=== PATIENT | male | born 1935 | race Hispanic/Latino ===

== ENCOUNTER 2021-05-17 14:45 | Inpatient (IN) | payer MEDICARE, BC ==
[2021-05-17 16:13] LABS: #Monocytes 0.5 10x3/uL (0.0-1.1); #Neutrophils 3.3 10x3/uL (1.5-8.4); %Basophils 0.2 % (0.0-2.0); %Lymphocytes 26.7 % (18.0-47.0); %Monocytes 9.5 % (0.0-10.0); %Neutrophils 63.2 % (40.0-75.0); Hemoglobin 11.3 g/dL (13.5-17.5); Mean Corpuscular Hemoglobin 24.1 pg (27.0-33.0); Mean Corpuscular Volume 77.6 fl (81.2-95.1); Mean Platelet Volume 10.7 fl (7.4-10.4); Platelet Count 132 10x3/uL (150-450); RBC Distribution Width 17.6 % (11.5-14.5); Red Blood Cell (RBC) Count 4.69 10x6/uL (4.32-5.72); White Blood Cell (WBC) Count 5.2 10x3/uL (3.5-10.5)
[2021-05-17] MEDS ORDERED: Calcium Carbonate 500 MG ChewTAB PO PRN (19:31)
[2021-05-17] MEDS ORDERED: Acetaminophen 325 MG TAB PO PRN (19:31)
[2021-05-17] MEDS ORDERED: Guaifenesin DM 100-10/5 ML UDCUP PO PRN (19:31)
[2021-05-17] MEDS ORDERED: Ondansetron PF 4 MG/2 ML Vial IVP PRN (19:31)
[2021-05-17 19:32] LABS: ALT (SGPT) 36 U/L (8-55); AST (SGOT) 79 U/L (5-34); Albumin 3.8 g/dL (3.4-4.8); Alkaline Phosphatase 57 U/L (40-110); Anion Gap 18 mmol/L (10-20); BUN (Urea Nitrogen) 26 mg/dL (8.4-25.7); Bilirubin, Total 0.5 mg/dL (0.2-1.2); CK (CPK) 1453 U/L (30-200); CRP (Inflammatory) 7.97 mg/dL (= or < 0.5); Calc. Creatinine Clearance 0 mL/min (70-130); Calcium 8.6 mg/dL (7.8-10.44); Carbon Dioxide 17 mmol/L (23-31); Chloride 99 mmol/L (98-107); Globulin 3.3 g/dL (2.4-3.5); Glucose 98 mg/dL (83-110); Potassium 4.1 mmol/L (3.5-5.1); Protein, Total 7.1 g/dL (5.8-8.1); Sodium 130 mmol/L (136-145)
[2021-05-17] MEDS ORDERED: Dextrose 50% Abboject 50 ML SYRINGE SLOW IVP PRN (19:36)
[2021-05-17] MEDS ORDERED: Dextrose 5% in Water 1,000 ML IV PRN (19:36)
[2021-05-17] MEDS ORDERED: Tamsulosin HCl 0.4 MG CAP PO SCH (21:00)
[2021-05-18 04:16] LABS: ALT (SGPT) 33 U/L (8-55); AST (SGOT) 65 U/L (5-34); Albumin 3.4 g/dL (3.4-4.8); Alkaline Phosphatase 55 U/L (40-110); Anion Gap 16 mmol/L (10-20); BUN (Urea Nitrogen) 20 mg/dL (8.4-25.7); Bilirubin, Total 0.5 mg/dL (0.2-1.2); CK (CPK) 1026 U/L (30-200); Calc. Creatinine Clearance 0 mL/min (70-130); Calcium 8.5 mg/dL (7.8-10.44); Carbon Dioxide 15 mmol/L (23-31); Chloride 105 mmol/L (98-107); Globulin 3.5 g/dL (2.4-3.5); Glucose 100 mg/dL (83-110); Iron 11 ug/dL (65-175); Iron Binding Capacity, Total 306 mcg/dL (261-462); Magnesium 1.7 mg/dL (1.6-2.6); Potassium 4.1 mmol/L (3.5-5.1); Protein, Total 6.9 g/dL (5.8-8.1); Sodium 132 mmol/L (136-145)
[2021-05-18 04:22] LABS: #Monocytes 0.4 10x3/uL (0.0-1.1); #Neutrophils 3.4 10x3/uL (1.5-8.4); %Basophils 0.2 % (0.0-2.0); %Eosinophils 0.2 % (0.0-6.0); %Lymphocytes 19.3 % (18.0-47.0); %Monocytes 8.5 % (0.0-10.0); %Neutrophils 71.6 % (40.0-75.0); Hemoglobin 10.9 g/dL (13.5-17.5); Mean Corpuscular HGB CONC 31.3 g/dL (32.0-36.0); Mean Corpuscular Hemoglobin 23.7 pg (27.0-33.0); Mean Corpuscular Volume 75.8 fl (81.2-95.1); Mean Platelet Volume 10.7 fl (7.4-10.4); Platelet Count 126 10x3/uL (150-450); RBC Distribution Width 17.5 % (11.5-14.5); Red Blood Cell (RBC) Count 4.59 10x6/uL (4.32-5.72); White Blood Cell (WBC) Count 4.7 10x3/uL (3.5-10.5)
[2021-05-18] MEDS ORDERED: Sodium Chloride 0.9% 500 ML IV SCH (04:30)
[2021-05-18 06:52] LABS: Bilirubin Neg (Negative); Blood, Urine 150 (Negative); Clarity Clear (Clear); Glucose, Urine (Dipstick) Normal (Negative); Ketone, Urine 50 mg/dL (Negative); Leukocyte Negative (Negative); Nitrite Negative (Negative); Protein, Urine (Dipstick) 30 mg/dl (Neg-Trace); Specific Gravity, Urine 1.025 (1.002-1.036); Urobilinogen Normal mg/dL (Less than 2)
[2021-05-18 06:59] LABS: Bacteria/HPF Rare-Few HPF (None Seen); RBC/HPF 0-3 HPF (0-3); Squamous Epithelial 0-3 HPF (0-3); WBC/HPF 0-3 HPF (0-3)
[2021-05-18 08:36] LABS: CKMB 6.3 ng/mL (0-6.6)
[2021-05-18] MEDS: Cholecalciferol 1,000 UNITS (25 MCG) TAB PO SCH (09:00)
[2021-05-18] MEDS: Zinc Gluconate 50 MG TAB PO SCH (09:00)
[2021-05-18] MEDS: Multivitamin W/ Minerals 1 TAB PO SCH (09:00)
[2021-05-18] MEDS: Carvedilol 25 MG TAB PO SCH ×2 (09:00→22:10)
[2021-05-18] MEDS ORDERED: DorzolamidE/Timolol 2%/0.5% Ophth Soln 10 ml Bottle EA EYE SCH (09:00)
[2021-05-18] MEDS: Ascorbic Acid 500 mg Chewable Tablet PO SCH (09:00)
[2021-05-18] MEDS: Aspirin 81 mg Enteric Coated Tablet PO SCH (12:00)
[2021-05-18] MEDS: Enoxaparin Sodium 40 MG/0.4 ML SYRINGE SC SCH (12:00)
[2021-05-18] MEDS: Allopurinol 300 MG TAB PO SCH (12:09)
[2021-05-18] MEDS: Timolol 0.5% Ophth Soln 5 ml Bottle EA EYE SCH ×2 (12:13→22:05)
[2021-05-18] MEDS ORDERED: Enoxaparin Sodium 40 MG/0.4 ML SYRINGE ONE (12:35)
[2021-05-18] MEDS ORDERED: Aspirin Chewable 81 MG TAB ONE (12:35)
[2021-05-18] MEDS: Dorzolamide HCl 2% Ophth Soln 10 ml Bottle EA EYE SCH ×2 (15:15→22:05)
[2021-05-18] MEDS: Sodium Chloride 0.9% 1,000 ML IV SCH ×2 (15:34→15:35)
[2021-05-18] MEDS: HumaLOG 300 UNITS/3 ML VIAL SC PRN (16:04)
[2021-05-18] MEDS: Dextrose 5%-Lactated Ringers 1,000 ML IV SCH (22:10)
[2021-05-18] MEDS: Latanoprost 0.005% Ophth Soln 2.5 ml Bottle EA EYE SCH (22:10)
[2021-05-19] MEDS: HumaLOG 300 UNITS/3 ML VIAL SC PRN ×2 (05:44→13:37)
[2021-05-19] MEDS: Zinc Gluconate 50 MG TAB PO SCH (10:20)
[2021-05-19] MEDS: Ascorbic Acid 500 mg Chewable Tablet PO SCH (10:20)
[2021-05-19] MEDS: Enoxaparin Sodium 40 MG/0.4 ML SYRINGE SC SCH (10:20)
[2021-05-19] MEDS: Aspirin 81 mg Enteric Coated Tablet PO SCH ×2 (10:20→17:35)
[2021-05-19] MEDS: Multivitamin W/ Minerals 1 TAB PO SCH (10:20)
[2021-05-19] MEDS: Carvedilol 25 MG TAB PO SCH ×2 (10:21→21:00)
[2021-05-19] MEDS: Cholecalciferol 1,000 UNITS (25 MCG) TAB PO SCH (10:23)
[2021-05-19] MEDS: Allopurinol 300 MG TAB PO SCH (10:24)
[2021-05-19] MEDS: Dorzolamide HCl 2% Ophth Soln 10 ml Bottle EA EYE SCH ×2 (10:25→21:01)
[2021-05-19] MEDS: Timolol 0.5% Ophth Soln 5 ml Bottle EA EYE SCH ×2 (10:26→21:01)
[2021-05-19] MEDS: Dextrose 5%-Lactated Ringers 1,000 ML IV SCH (10:29)
[2021-05-19 18:30] LABS: ALT (SGPT) 32 U/L (8-55); AST (SGOT) 49 U/L (5-34); Alkaline Phosphatase 47 U/L (40-110); Anion Gap 12 mmol/L (10-20); BUN (Urea Nitrogen) 12 mg/dL (8.4-25.7); Bilirubin, Total 0.3 mg/dL (0.2-1.2); CK (CPK) 403 U/L (30-200); Calc. Creatinine Clearance 93 mL/min (70-130); Calcium 8.4 mg/dL (7.8-10.44); Carbon Dioxide 19 mmol/L (23-31); Chloride 108 mmol/L (98-107); Glucose 132 mg/dL (83-110); Potassium 3.7 mmol/L (3.5-5.1); Sodium 135 mmol/L (136-145)
[2021-05-19 18:31] LABS: #Eosinphils 0.1 10x3/uL (0.0-0.5); #Monocytes 0.4 10x3/uL (0.0-1.1); #Neutrophils 2.7 10x3/uL (1.5-8.4); %Basophils 0.2 % (0.0-2.0); %Eosinophils 2.3 % (0.0-6.0); %Lymphocytes 26.3 % (18.0-47.0); %Monocytes 8.4 % (0.0-10.0); %Neutrophils 62.6 % (40.0-75.0); Hemoglobin 10.1 g/dL (13.5-17.5); Mean Corpuscular HGB CONC 32.1 g/dL (32.0-36.0); Mean Corpuscular Hemoglobin 24.1 pg (27.0-33.0); Mean Corpuscular Volume 75.2 fl (81.2-95.1); Mean Platelet Volume 10.5 fl (7.4-10.4); Platelet Count 131 10x3/uL (150-450); RBC Distribution Width 17.6 % (11.5-14.5); Red Blood Cell (RBC) Count 4.19 10x6/uL (4.32-5.72); White Blood Cell (WBC) Count 4.3 10x3/uL (3.5-10.5)
[2021-05-19] MEDS: Latanoprost 0.005% Ophth Soln 2.5 ml Bottle EA EYE SCH (21:00)
[2021-05-20 05:42] LABS: ALT (SGPT) 32 U/L (8-55); AST (SGOT) 48 U/L (5-34); Alkaline Phosphatase 47 U/L (40-110); Anion Gap 13 mmol/L (10-20); BUN (Urea Nitrogen) 10 mg/dL (8.4-25.7); Bilirubin, Total 0.5 mg/dL (0.2-1.2); CK (CPK) 378 U/L (30-200); CRP (Inflammatory) 6.22 mg/dL (= or < 0.5); Calc. Creatinine Clearance 93 mL/min (70-130); Calcium 8.5 mg/dL (7.8-10.44); Carbon Dioxide 19 mmol/L (23-31); Chloride 106 mmol/L (98-107); Globulin 3.1 g/dL (2.4-3.5); Glucose 130 mg/dL (83-110); Potassium 3.7 mmol/L (3.5-5.1); Protein, Total 6.1 g/dL (5.8-8.1); Sodium 134 mmol/L (136-145)
[2021-05-20 05:47] LABS: #Eosinphils 0.1 10x3/uL (0.0-0.5); #Monocytes 0.4 10x3/uL (0.0-1.1); #Neutrophils 2.5 10x3/uL (1.5-8.4); %Basophils 0.2 % (0.0-2.0); %Eosinophils 2.2 % (0.0-6.0); %Lymphocytes 31.3 % (18.0-47.0); %Monocytes 9.6 % (0.0-10.0); %Neutrophils 56.5 % (40.0-75.0); Hemoglobin 10.1 g/dL (13.5-17.5); Mean Corpuscular Volume 75.1 fl (81.2-95.1); Mean Platelet Volume 11.7 fl (7.4-10.4); Platelet Count 126 10x3/uL (150-450); RBC Distribution Width 17.5 % (11.5-14.5); Red Blood Cell (RBC) Count 4.21 10x6/uL (4.32-5.72); White Blood Cell (WBC) Count 4.5 10x3/uL (3.5-10.5)
[2021-05-20] MEDS: Ascorbic Acid 500 mg Chewable Tablet PO SCH (10:29)
[2021-05-20] MEDS: Enoxaparin Sodium 40 MG/0.4 ML SYRINGE SC SCH (10:29)
[2021-05-20] MEDS: Allopurinol 300 MG TAB PO SCH (10:30)
[2021-05-20] MEDS: Fluticasone Propionate Nasal Spray 16 gm Bottle NASAL SCH (10:30)
[2021-05-20] MEDS: Carvedilol 25 MG TAB PO SCH ×2 (10:30→20:06)
[2021-05-20] MEDS: Cholecalciferol 1,000 UNITS (25 MCG) TAB PO SCH (10:30)
[2021-05-20] MEDS: Timolol 0.5% Ophth Soln 5 ml Bottle EA EYE SCH ×2 (10:31→20:25)
[2021-05-20] MEDS: Loratadine 10 MG TAB PO SCH (10:31)
[2021-05-20] MEDS: Dorzolamide HCl 2% Ophth Soln 10 ml Bottle EA EYE SCH ×2 (10:31→20:12)
[2021-05-20] MEDS ORDERED: METHAZOLAMIDE 50 MG PO SCH (13:00)
[2021-05-20] MEDS: Latanoprost 0.005% Ophth Soln 2.5 ml Bottle EA EYE SCH (20:07)
[2021-05-20] MEDS: METHAZOLAMIDE 50 MG PO SCH (20:10)
[2021-05-21 06:06] LABS: #Eosinphils 0.1 10x3/uL (0.0-0.5); #Monocytes 0.4 10x3/uL (0.0-1.1); #Neutrophils 2.5 10x3/uL (1.5-8.4); %Basophils 0.2 % (0.0-2.0); %Eosinophils 2.4 % (0.0-6.0); %Lymphocytes 27.9 % (18.0-47.0); %Monocytes 9.9 % (0.0-10.0); %Neutrophils 59.4 % (40.0-75.0); Hemoglobin 10.7 g/dL (13.5-17.5); Mean Corpuscular HGB CONC 31.7 g/dL (32.0-36.0); Mean Corpuscular Hemoglobin 24.1 pg (27.0-33.0); Mean Corpuscular Volume 76.1 fl (81.2-95.1); Mean Platelet Volume 9.9 fl (7.4-10.4); Platelet Count 148 10x3/uL (150-450); RBC Distribution Width 17.8 % (11.5-14.5); Red Blood Cell (RBC) Count 4.44 10x6/uL (4.32-5.72); White Blood Cell (WBC) Count 4.2 10x3/uL (3.5-10.5)
[2021-05-21 06:16] LABS: ALT (SGPT) 36 U/L (8-55); AST (SGOT) 45 U/L (5-34); Albumin 3.3 g/dL (3.4-4.8); Alkaline Phosphatase 71 U/L (40-110); Anion Gap 14 mmol/L (10-20); BUN (Urea Nitrogen) 8 mg/dL (8.4-25.7); Bilirubin, Total 0.7 mg/dL (0.2-1.2); CRP (Inflammatory) 12.72 mg/dL (= or < 0.5); Calc. Creatinine Clearance 90 mL/min (70-130); Calcium 8.9 mg/dL (7.8-10.44); Carbon Dioxide 20 mmol/L (23-31); Chloride 105 mmol/L (98-107); Globulin 3.5 g/dL (2.4-3.5); Glucose 139 mg/dL (83-110); Potassium 3.3 mmol/L (3.5-5.1); Protein, Total 6.8 g/dL (5.8-8.1); Sodium 136 mmol/L (136-145)
[2021-05-21] MEDS: Ascorbic Acid 500 mg Chewable Tablet PO SCH (08:45)
[2021-05-21] MEDS: Cholecalciferol 1,000 UNITS (25 MCG) TAB PO SCH (08:45)
[2021-05-21] MEDS: Enoxaparin Sodium 40 MG/0.4 ML SYRINGE SC SCH (08:45)
[2021-05-21] MEDS: Loratadine 10 MG TAB PO SCH (08:46)
[2021-05-21] MEDS: Fluticasone Propionate Nasal Spray 16 gm Bottle NASAL SCH (08:46)
[2021-05-21] MEDS: Carvedilol 25 MG TAB PO SCH ×2 (08:46→19:40)
[2021-05-21] MEDS: Dorzolamide HCl 2% Ophth Soln 10 ml Bottle EA EYE SCH ×2 (08:46→19:50)
[2021-05-21] MEDS: METHAZOLAMIDE 50 MG PO SCH ×2 (08:46→19:40)
[2021-05-21] MEDS: Allopurinol 300 MG TAB PO SCH (08:46)
[2021-05-21] MEDS: Timolol 0.5% Ophth Soln 5 ml Bottle EA EYE SCH ×2 (08:46→20:00)
[2021-05-21] MEDS: HumaLOG 300 UNITS/3 ML VIAL SC PRN (13:15)
[2021-05-21] MEDS: Latanoprost 0.005% Ophth Soln 2.5 ml Bottle EA EYE SCH (21:30)
[2021-05-22] MEDS: HumaLOG 300 UNITS/3 ML VIAL SC PRN (00:40)
[2021-05-22 08:12] LABS: #Eosinphils 0.2 10x3/uL (0.0-0.5); #Monocytes 0.6 10x3/uL (0.0-1.1); #Neutrophils 3.3 10x3/uL (1.5-8.4); %Basophils 0.2 % (0.0-2.0); %Eosinophils 2.8 % (0.0-6.0); %Lymphocytes 22.7 % (18.0-47.0); %Monocytes 10.6 % (0.0-10.0); %Neutrophils 63.3 % (40.0-75.0); ALT (SGPT) 39 U/L (8-55); AST (SGOT) 48 U/L (5-34); Albumin 3.2 g/dL (3.4-4.8); Alkaline Phosphatase 88 U/L (40-110); Anion Gap 12 mmol/L (10-20); BUN (Urea Nitrogen) 12 mg/dL (8.4-25.7); Bilirubin, Total 0.6 mg/dL (0.2-1.2); CRP (Inflammatory) 11.28 mg/dL (= or < 0.5); Calc. Creatinine Clearance 90 mL/min (70-130); Carbon Dioxide 22 mmol/L (23-31); Chloride 106 mmol/L (98-107); Globulin 3.5 g/dL (2.4-3.5); Glucose 132 mg/dL (83-110); Hemoglobin 10.8 g/dL (13.5-17.5); Mean Corpuscular HGB CONC 31.9 g/dL (32.0-36.0); Mean Corpuscular Hemoglobin 24.4 pg (27.0-33.0); Mean Corpuscular Volume 76.7 fl (81.2-95.1); Mean Platelet Volume 11.1 fl (7.4-10.4); Platelet Count 204 10x3/uL (150-450); Potassium 3.7 mmol/L (3.5-5.1); Protein, Total 6.7 g/dL (5.8-8.1); Red Blood Cell (RBC) Count 4.42 10x6/uL (4.32-5.72); Sodium 136 mmol/L (136-145); White Blood Cell (WBC) Count 5.3 10x3/uL (3.5-10.5)
[2021-05-22] MEDS: Ascorbic Acid 500 mg Chewable Tablet PO SCH (09:35)
[2021-05-22] MEDS: Carvedilol 25 MG TAB PO SCH ×2 (09:35→21:27)
[2021-05-22] MEDS: Allopurinol 300 MG TAB PO SCH (09:35)
[2021-05-22] MEDS: Dorzolamide HCl 2% Ophth Soln 10 ml Bottle EA EYE SCH ×2 (09:36→21:28)
[2021-05-22] MEDS: Enoxaparin Sodium 40 MG/0.4 ML SYRINGE SC SCH (09:36)
[2021-05-22] MEDS: Fluticasone Propionate Nasal Spray 16 gm Bottle NASAL SCH (09:36)
[2021-05-22] MEDS: Cholecalciferol 1,000 UNITS (25 MCG) TAB PO SCH (09:36)
[2021-05-22] MEDS: Loratadine 10 MG TAB PO SCH (09:37)
[2021-05-22] MEDS: Timolol 0.5% Ophth Soln 5 ml Bottle EA EYE SCH ×2 (09:38→21:29)
[2021-05-22] MEDS: METHAZOLAMIDE 50 MG PO SCH ×2 (09:38→21:29)
[2021-05-22 09:55] VITALS: BMI 29.9
[2021-05-22] MEDS: Latanoprost 0.005% Ophth Soln 2.5 ml Bottle EA EYE SCH (21:29)
[2021-05-23 08:05] LABS: #Eosinphils 0.2 10x3/uL (0.0-0.5); #Monocytes 0.4 10x3/uL (0.0-1.1); #Neutrophils 2.6 10x3/uL (1.5-8.4); %Basophils 0.2 % (0.0-2.0); %Eosinophils 4.7 % (0.0-6.0); %Lymphocytes 23.4 % (18.0-47.0); %Monocytes 9.9 % (0.0-10.0); %Neutrophils 61.3 % (40.0-75.0); Hemoglobin 10.9 g/dL (13.5-17.5); Mean Corpuscular Hemoglobin 24.2 pg (27.0-33.0); Mean Platelet Volume 10.4 fl (7.4-10.4); Platelet Count 253 10x3/uL (150-450); RBC Distribution Width 18.3 % (11.5-14.5); Red Blood Cell (RBC) Count 4.51 10x6/uL (4.32-5.72); White Blood Cell (WBC) Count 4.2 10x3/uL (3.5-10.5)
[2021-05-23 08:29] LABS: ALT (SGPT) 34 U/L (8-55); AST (SGOT) 32 U/L (5-34); Albumin 3.3 g/dL (3.4-4.8); Alkaline Phosphatase 86 U/L (40-110); Anion Gap 14 mmol/L (10-20); BUN (Urea Nitrogen) 14 mg/dL (8.4-25.7); Bilirubin, Total 0.6 mg/dL (0.2-1.2); Calc. Creatinine Clearance 79 mL/min (70-130); Calcium 9.3 mg/dL (7.8-10.44); Carbon Dioxide 21 mmol/L (23-31); Chloride 105 mmol/L (98-107); Globulin 3.8 g/dL (2.4-3.5); Glucose 166 mg/dL (83-110); Potassium 3.6 mmol/L (3.5-5.1); Protein, Total 7.1 g/dL (5.8-8.1); Sodium 136 mmol/L (136-145)
[2021-05-23] MEDS: Dorzolamide HCl 2% Ophth Soln 10 ml Bottle EA EYE SCH ×2 (08:41→21:15)
[2021-05-23] MEDS: Cholecalciferol 1,000 UNITS (25 MCG) TAB PO SCH (08:41)
[2021-05-23] MEDS: Ascorbic Acid 500 mg Chewable Tablet PO SCH (08:41)
[2021-05-23] MEDS: Carvedilol 25 MG TAB PO SCH ×2 (08:41→21:13)
[2021-05-23] MEDS: Allopurinol 300 MG TAB PO SCH (08:41)
[2021-05-23] MEDS: Fluticasone Propionate Nasal Spray 16 gm Bottle NASAL SCH (08:42)
[2021-05-23] MEDS: Loratadine 10 MG TAB PO SCH (08:42)
[2021-05-23] MEDS: Enoxaparin Sodium 40 MG/0.4 ML SYRINGE SC SCH (08:42)
[2021-05-23] MEDS: METHAZOLAMIDE 50 MG PO SCH ×2 (08:43→21:13)
[2021-05-23] MEDS: Timolol 0.5% Ophth Soln 5 ml Bottle EA EYE SCH ×2 (08:43→21:14)
[2021-05-23] MEDS: Latanoprost 0.005% Ophth Soln 2.5 ml Bottle EA EYE SCH (21:14)
[2021-05-24] MEDS: Allopurinol 300 MG TAB PO SCH (09:42)
[2021-05-24] MEDS: Ascorbic Acid 500 mg Chewable Tablet PO SCH (09:43)
[2021-05-24] MEDS: Enoxaparin Sodium 40 MG/0.4 ML SYRINGE SC SCH (09:43)
[2021-05-24] MEDS: Fluticasone Propionate Nasal Spray 16 gm Bottle NASAL SCH (09:43)
[2021-05-24] MEDS: Carvedilol 25 MG TAB PO SCH ×2 (09:43→21:12)
[2021-05-24] MEDS: Cholecalciferol 1,000 UNITS (25 MCG) TAB PO SCH (09:43)
[2021-05-24] MEDS: Dorzolamide HCl 2% Ophth Soln 10 ml Bottle EA EYE SCH ×2 (09:43→21:25)
[2021-05-24] MEDS: Loratadine 10 MG TAB PO SCH (09:43)
[2021-05-24] MEDS: Timolol 0.5% Ophth Soln 5 ml Bottle EA EYE SCH ×2 (09:44→21:26)
[2021-05-24] MEDS: METHAZOLAMIDE 50 MG PO SCH ×2 (09:44→21:27)
[2021-05-24] MEDS: Latanoprost 0.005% Ophth Soln 2.5 ml Bottle EA EYE SCH (21:25)
[2021-05-25] MEDS: Carvedilol 25 MG TAB PO SCH (10:40)
[2021-05-25] MEDS: Cholecalciferol 1,000 UNITS (25 MCG) TAB PO SCH (10:40)
[2021-05-25] MEDS: Allopurinol 300 MG TAB PO SCH (10:40)
[2021-05-25] MEDS: Ascorbic Acid 500 mg Chewable Tablet PO SCH (10:41)
[2021-05-25] MEDS: Loratadine 10 MG TAB PO SCH (10:42)
[2021-05-25] MEDS: Enoxaparin Sodium 40 MG/0.4 ML SYRINGE SC SCH (10:42)
[2021-05-25] MEDS: METHAZOLAMIDE 50 MG PO SCH (11:33)
[2021-05-25] MEDS: Dorzolamide HCl 2% Ophth Soln 10 ml Bottle EA EYE SCH (11:34)
[2021-05-25] MEDS: Fluticasone Propionate Nasal Spray 16 gm Bottle NASAL SCH (11:35)
[2021-05-25] MEDS: Timolol 0.5% Ophth Soln 5 ml Bottle EA EYE SCH (11:35)
[2021-05-25 14:12] VITALS: BP 163/86; TEMP 97.8
== END 2021-05-25 14:15 | DRG 178 ==
LOC: CSHERS 14:45 → CSHERHOLD 05-18 03:51 → CSHTELE 05-18 14:54
PROVIDERS: ADMIT Student in an Organized Health Care Education/Training Program; ATTEND Family Medicine
PROC: 8E0ZXY6 Isolation (ICD-10-PCS; principal; 2021-05-18)
DX: U07.1 COVID-19 (principal); E87.1 Hypo-osmolality and hyponatremia; M62.82 Rhabdomyolysis; N17.9 Acute kidney failure, unspecified; K21.9 Gastro-esophageal reflux disease without esophagitis; I10 Essential (primary) hypertension; R62.7 Adult failure to thrive; R77.8 Other specified abnormalities of plasma proteins; R53.81 Other malaise; D50.9 Iron deficiency anemia, unspecified; N40.0 Benign prostatic hyperplasia without lower urinary tract symptoms; I25.10 Atherosclerotic heart disease of native coronary artery without angina pectoris; E78.5 Hyperlipidemia, unspecified; M10.9 Gout, unspecified; H40.9 Unspecified glaucoma; G47.33 Obstructive sleep apnea (adult) (pediatric); R19.7 Diarrhea, unspecified; Z79.4 Long term (current) use of insulin; Z79.899 Other long term (current) drug therapy; Z98.49 Cataract extraction status, unspecified eye; E11.9 Type 2 diabetes mellitus without complications
CPT/HCPCS: 36415; 36416; 71045; 80053; 81001; 82550; 82553; 82728; 83540; 83550; 83605; 83735; 84484; 85025; 85379; 86140; 87324; 87449; 93005; 93010; 93306; 94760; 96365; 96374; 99284; J1200; J1650; J1815; J7050; Q0245

== ENCOUNTER → 2021-05-17 | Day surgery (SDC) | payer MEDICARE, BC ==
[~2021-05-17] MED LIST: Acetaminophen 500 MG TAB ONE; BAMLANIVIMAB 700 MG, ETESEVIMAB 700 MG/20 ML 1,400 MG in Sodium Chloride 0.9% 250 ML 25... IVPB SCH; diphenhydrAMINE 50 MG/ML VIAL ONE
== END ==
LOC: CSHSDC 12:10
PROVIDERS: ATTEND Family Medicine
DX: U07.1 COVID-19 (principal); Z23 Encounter for immunization
CPT/HCPCS: 96365; 96374; M0239; Q0239; J1200; J7050; Q0245